=== PATIENT | male | born 1970 | race Hispanic/Latino ===

== ENCOUNTER 2020-05-15 11:40 | Emergency (ER) | payer SELFPAY ==
[2020-05-15] MEDS ORDERED: BACTRIM DS1 TAB PO (12:40)
[2020-05-15] MEDS ORDERED: CEPHALEXIN500 M1 PO (12:40)
[2020-05-15 13:00] VITALS: BP 120/69
== END 2020-05-15 13:00 | disposition home or self-care (01) | DRG 603 ==
LOC: ED 11:40
PROC: 0H9LXZZ Drainage of Left Lower Leg Skin, External Approach (ICD-10-PCS; principal; 2020-05-15)
DX: L02.416 Cutaneous abscess of left lower limb (principal); L03.116 Cellulitis of left lower limb; B95.62 Methicillin resistant Staphylococcus aureus infection as the cause of diseases classified elsewhere

== ENCOUNTER 2020-05-16 14:20 | Emergency (ER) | payer SELFPAY ==
[~2020-05-16 14:20] MED LIST: BACTRIM DS1 TAB PO; CEPHALEXIN500 M1 PO
[2020-05-16 14:56] VITALS: BP 135/83
== END 2020-05-16 15:03 | disposition home or self-care (01) | DRG 951 ==
LOC: ED 14:20
DX: Z48.01 Encounter for change or removal of surgical wound dressing (principal)